=== PATIENT | male | born 1965 | race African-American/Black ===

== ENCOUNTER 2016-08-29 10:58 | Emergency (ER) | payer MEDICAID ==
[~2016-08-29] VITALS: Ht 175.3 cm; Wt 81.6 kg
[~2016-08-29 10:58] MED LIST: CYCLOBENZAPRINE10 MG ORAL; IBUPROFEN800 MG ORAL
[2016-08-29] MEDS ORDERED: Ketorolac 30mg Inj IM ONE (11:45)
[2016-08-29] MEDS ORDERED: CYCLOBENZAPRINE10 MG ORAL (11:47)
[2016-08-29] MEDS ORDERED: ACETAMINOPHEN-1 EAC1 ORAL (11:47)
[2016-08-29 11:55] VITALS: BP 116/66
[2016-08-29 11:58] VITALS: BP 116/66
--- NOTE | 2016-08-29 14:20 | Emergency Room Report ---
History of Present Illness General Chief Complaint: Lower Back Pain or Injury Source: Patient Present Illness HPI 51-year-old male presents ED complaining of back pain x4 days. Notes pain to the right lower back, radiating around the hip. 8/ 10. Dull. Took Motrin without significant relief. Notes history of previous back pain. Pain is worse with bending and twisting. Denies recent injury. No other aggravating relieving factors. Denies any other associated symptoms Allergies: Coded Allergies: No Known Allergies (Unverified , 07/01/15) Patient History Past Medical History: none Past Surgical History: none Pertinent Family History: none Social History: Denies: alcohol use, drug use, smoking Immunizations: UTD Reviewed Nursing Documentation: PMH: Agreed, PSxH: Agreed Nursing Documentation-PMH Past Medical History: No Stated History Review of Systems All Other Systems: negative except mentioned in HPI Physical Exam Vital Signs Date Time Temp Pulse Resp B/P Pulse Ox O2 Delivery O2 Flow Rate FiO2 08/29/16 11:02 97.9 67 14 116/66 97 Room Air Sp02 EP Interpretation: reviewed, normal General Appearance: no apparent distress, alert, GCS 15, non-toxic Head: normocephalic Eyes: bilateral eye PERRL, bilateral eye normal inspection ENT: normal ENT inspection Neck: normal inspection Respiratory: normal inspection, speaking full sentences Cardiovascular #1: normal inspection Gastrointestinal: normal inspection Rectal: deferred Genitourinary: no CVA tenderness, no vertebral tenderness Musculoskeletal: tender - paraspinal lumbar tenderness Neurologic: alert, oriented x3, responsive, motor strength/tone normal, SLR negative, sensory intact, speech normal Psychiatric: normal inspection Skin: normal inspection Lymphatic: normal inspection Medical Decision Making Diagnostic Impression: Primary Impression: Muscle spasm of back ER Course Hospital Course 51-year-old male presents ED complaining of lower back pain. No evidence of trauma Differential diagnoses include: pyelonephritis, kidney stone, muscle strain, Lspine fracture Clinical course Patient placed on stretcher. After initial history, physical exam reveals a middle-age male in no acute distress. There is no CVA tenderness. No midline vertebral tenderness. There is some paraspinal lumbar tenderness on the right, radiating through the hip. Straight leg raise negative. No focal deficits. Likely muscular pain. I ordered torado lfor pain. Upon reassessment patient states pain has improved. Diagnosis - muscle spasm of back Stable and discharged to home with prescription for Tylenol #3, Flexeril. Followup with PMD. Return to ED if symptoms recur or worsen Last Vital Signs Date Time Temp Pulse Resp B/P Pulse Ox O2 Delivery O2 Flow Rate FiO2 08/29/16 12:00 97.9 08/29/16 11:58 76 16 116/66 97 Room Air Status: improved Disposition: HOME, SELF-CARE Condition: Stable Scripts Cyclobenzaprine Hcl* (FLEXERIL*) 10 Mg Tablet 10 MG ORAL TID Y for Muscle Spasm, #20 TAB Prov: AMARJIT HERNÁNDEZ M.D. 08/29/16 Acetaminophen With Codeine (T#3) (TYLENOL #3 TAB*) Y Tab 1 TAB ORAL Q8H Y for For Pain, #20 TAB Prov: AMARJIT HERNÁNDEZ M.D. 08/29/16 Referrals: NOT CHOSEN IPA/,REFERRING Patient Instructions: Lumbosacral Strain AMARJIT HERNÁNDEZ M.D. Aug 29, 2016 14:20
== END 2016-08-29 12:01 | disposition home or self-care (01) ==
LOC: EMR 11:39
DX: M62.830 Muscle spasm of back (principal)
CPT/HCPCS: 96372; 99284; J1885

== ENCOUNTER 2017-10-17 18:43 | Emergency (ER) | payer SELFPAY ==
[~2017-10-17] VITALS: Ht 175.3 cm; Wt 81.6 kg
[~2017-10-17 18:43] MED LIST changes: +ACETAMINOPHEN-1 EAC1 ORAL
[2017-10-17] MEDS ORDERED: IBUPROFEN600 MG ORAL (19:11)
[2017-10-17] MEDS ORDERED: ACETAMINOPHEN-1 EAC1 ORAL (19:11)
[2017-10-17] MEDS ORDERED: AMOXICILLIN500 MG ORAL (19:11)
[2017-10-17 19:15] VITALS: BP 143/84
--- NOTE | 2017-10-17 19:29 | Emergency Room Report ---
History of Present Illness General Chief Complaint: Toothache Source: Patient Present Illness HPI Patient presents with complaints of left-sided dental pain. Molar and molar area Reports pain of 6 out of 10 Patient states that he is not able to see his dentist until Sunday Denies any fevers or chills Denies any vomiting or diarrhea denies any neck pain or photophobia denies any acute trauma Denies any trismus Allergies: Coded Allergies: No Known Allergies (Unverified , 07/01/15) Patient History Past Medical History: see triage record Pertinent Family History: none Reviewed Nursing Documentation: PMH: Agreed; PSxH: Agreed Review of Systems All Other Systems: negative except mentioned in HPI Physical Exam Vital Signs Date Time Temp Pulse Resp B/P (MAP) Pulse Ox O2 Delivery O2 Flow Rate FiO2 10/17/17 19:01 98.0 66 18 143/84 99 Room Air 98.1 Sp02 EP Interpretation: reviewed, normal General Appearance: well appearing, no apparent distress Head: normocephalic, atraumatic Eyes: bilateral eye PERRL, bilateral eye EOMI ENT: other - Poor dentition and evidence of some decay left molar and premolar area, no obvious abscess Neck: full range of motion, supple Respiratory: lungs clear Cardiovascular #1: regular rate, rhythm, no edema Gastrointestinal: non tender, soft Musculoskeletal: normal inspection Neurologic: alert, oriented x3 Skin: normal color, no rash Lymphatic: no adenopathy Medical Decision Making Diagnostic Impression: Primary Impression: dental pain ER Course Patient has evidence of likely dental decay Requiring close dental follow-up He is initially placed on oral antibiotics pain medication and will follow as recommended Last Vital Signs Date Time Temp Pulse Resp B/P (MAP) Pulse Ox O2 Delivery O2 Flow Rate FiO2 10/17/17 19:15 98.1 18 143/84 99 Room Air 98.1 10/17/17 19:15 88 Status: improved Disposition: HOME, SELF-CARE Condition: Stable Scripts Acetaminophen With Codeine (T#3) (TYLENOL #3 TAB*) Y Tab 1 TAB ORAL Q12HR PRN for For Pain, #8 TAB Prov: Bobbi Vargas DO 10/17/17 Amoxicillin* (AMOXIL*) 500 Mg Capsule 500 MG ORAL THREE TIMES A DAY, #30 CAP Prov: Bobbi Vargas DO 10/17/17 Ibuprofen* (MOTRIN*) 600 Mg Tablet 600 MG ORAL Q8H PRN for For Pain, #20 TAB 0 Refills Prov: Bobbi Vargas DO 10/17/17 Patient Instructions: Dental Pain Additional Instructions: Please follow-up with dental specialist in the next 2-3 days Bobbi Vargas DO Oct 17, 2017 19:29
== END 2017-10-17 19:15 | disposition home or self-care (01) ==
LOC: EMR 19:10
DX: K08.89 Other specified disorders of teeth and supporting structures (principal)
CPT/HCPCS: 99283